=== PATIENT | male | born 1975 | race Two or more races ===

== ENCOUNTER 2016-12-16 10:14 | Emergency (ER) | payer SELFPAY ==
[~2016-12-16] VITALS: Ht 172.7 cm; Wt 99.9 kg
[2016-12-16] MEDS ORDERED: MORPHINE SULFATE 4 MG/ML, 1ML IVPush PRN (12:00)
[2016-12-16] MEDS ORDERED: FAMOTIDINE 20 MG/2 ML IVP ONE (12:00)
[2016-12-16] MEDS ORDERED: SODIUM CHLORIDE FLUSH 10ML SYR IVF ONE (12:00)
[2016-12-16] MEDS ORDERED: ONDANSETRON 2MG/ML, 2ML IVPush ONE (12:00)
[2016-12-16] MEDS ORDERED: SODIUM CHLORIDE 0.9% 1,000ML IVBOLUS ONE (12:00)
[2016-12-16 12:04] LABS: ASPARTATE AMINO TRANSFERASE 21 U/L (15-37); BLOOD UREA NITROGEN 10 mg/dL (7-18)
[2016-12-16] MEDS ORDERED: ONDANSETRON 2MG/ML, 2ML ONE (12:44)
[2016-12-16] MEDS ORDERED: FAMOTIDINE 20 MG/2 ML ONE (12:44)
[2016-12-16] MEDS ORDERED: MORPHINE SULFATE 4 MG/ML, 1ML ONE (12:44)
[2016-12-16 13:50] VITALS: BP 122/70
== END 2016-12-16 13:53 | disposition home or self-care (01) ==
LOC: ED 13:19
DX: K80.20 Calculus of gallbladder without cholecystitis without obstruction (principal)
CPT/HCPCS: 36415; 76700; 80053; 83690; 85025; 96361; 96374; 96375; 99285; J2405; J7030; S0028

== ENCOUNTER 2017-04-26 05:59 | Observation (INO) | payer OTHER ==
[~2017-04-26] VITALS: Ht 167.6 cm; Wt 100.0 kg
[2017-04-26] MEDS ORDERED: ONDANSETRON 2MG/ML, 2ML ONE ×2 (06:53→12:15)
[2017-04-26] MEDS ORDERED: HYDROmorphone 1 MG/ML, 1ML ONE (06:53)
[2017-04-26] MEDS ORDERED: SODIUM CHLORIDE 0.9% 1,000ML IVBOLUS ONE (07:00)
[2017-04-26] MEDS ORDERED: SODIUM CHLORIDE FLUSH 10ML SYR IVF ONE (07:00)
[2017-04-26] MEDS ORDERED: HYDROmorphone 1 MG/ML, 1ML IVPush PRN ×2 (07:00→09:00)
[2017-04-26] MEDS ORDERED: ONDANSETRON 2MG/ML, 2ML IVPush ONE (07:00)
[2017-04-26 07:36] LABS: HEMATOCRIT 44.9 % (39.2-51.8); HEMOGLOBIN 15.6 g/dL (13.7-18.0); WHITE BLOOD COUNT 11.6 x10^3/uL (3.4-10)
[2017-04-26 07:47] LABS: ASPARTATE AMINO TRANSFERASE 25 U/L (15-37); BLOOD UREA NITROGEN 16 mg/dL (7-18)
[2017-04-26] MEDS ORDERED: D5%-0.45% NACL 1,000 ML IV ONE (08:57)
[2017-04-26] MEDS ORDERED: ONDANSETRON 2MG/ML, 2ML IVPush PRN ×3 (09:00→14:30)
[2017-04-26] MEDS ORDERED: SODIUM CHLORIDE FLUSH 10ML SYR IVF PRN (09:00)
[2017-04-26 10:20] VITALS: BP 122/72
[2017-04-26] MEDS ORDERED: BUPIVACAINE/PF 0.5% ONE (11:29)
[2017-04-26] MEDS ORDERED: EPINEPHRINE 1 MG/ML, 1ML ONE (11:29)
[2017-04-26] MEDS ORDERED: FLU VACC QS2017-18 (36MOS+) UP/PF 0.5 ML IM-VACC ONE (11:30)
[2017-04-26] MEDS ORDERED: FENTANYL PF 100 MCG/2ML ONE ×2 (11:36)
[2017-04-26] MEDS ORDERED: MIDAZOLAM 1 MG/ML, 2ML ONE (11:37)
[2017-04-26] MEDS ORDERED: GLYCOPYRROLATE 0.4 MG/2 ML, 2ML ONE (12:15)
[2017-04-26] MEDS ORDERED: DEXAMETHASONE 4 MG/ML, 1ML ONE (12:15)
[2017-04-26] MEDS ORDERED: NEOSTIGMINE 1 MG/ML, 10ML ONE (12:15)
[2017-04-26] MEDS ORDERED: SUCCINYLCHOLINE 20 MG/ML, 10ML ONE (12:15)
[2017-04-26] MEDS ORDERED: PROPOFOL 10 MG/ML, 20ML ONE (12:15)
[2017-04-26] MEDS ORDERED: CEFAZOLIN 1,000 MG ONE (12:15)
[2017-04-26] MEDS ORDERED: ROCURONIUM 10 MG/ML ONE (12:15)
[2017-04-26] MEDS ORDERED: OXYcodone 5 MG/5 ML ORAL.SOL UDC PO PRN (13:30)
[2017-04-26] MEDS ORDERED: HYDROmorphone 1 MG/ML, 1ML IV PRN (13:30)
[2017-04-26] MEDS ORDERED: hydrALAzine 20 MG/ML, 1ML IV PRN (13:30)
[2017-04-26] MEDS ORDERED: FENTANYL PF 100 MCG/2ML IV PRN (13:30)
[2017-04-26] MEDS ORDERED: METOCLOPRAMIDE 5 MG/ML, 2ML IV PRN (13:30)
[2017-04-26] MEDS ORDERED: LABETALOL 5MG/ML, 20ML IV PRN (13:30)
[2017-04-26] MEDS ORDERED: ACETAMINOPHEN 325 MG TABLET PO PRN (13:30)
[2017-04-26 14:03] VITALS: BP 120/78
[2017-04-26] MEDS ORDERED: OXYC-306 PO (14:30)
[2017-04-26] MEDS ORDERED: OXYcodone/APAP 5/325MG TABLET PO PRN (14:30)
[2017-04-26] MEDS ORDERED: MORPHINE SULFATE 4 MG/ML, 1ML IV PRN (14:30)
[2017-04-26] MEDS ORDERED: IBUP-1223 PO (14:32)
== END 2017-04-26 15:50 | disposition home or self-care (01) ==
LOC: ED 08:12 → EDIP 08:57 → 4NOR 10:15
PROVIDERS: ADMIT Surgery; ATTEND Surgery
DX: K80.00 Calculus of gallbladder with acute cholecystitis without obstruction (principal); D72.829 Elevated white blood cell count, unspecified
CPT/HCPCS: 36415; 47562; 76700; 80053; 83690; 85025; 88304; 90471; 90686; 96374; 96375; 96376; 99285; G0378; J0171; J0330; J0690; J1100; J1170; J2250; J2405; J2704; J2710; J3010; J3490; J7030